=== PATIENT | female | born 1995 | race African-American/Black ===

== ENCOUNTER 2023-12-10 18:55 | Emergency (ER) | payer MEDICAID ==
[2023-12-10 19:04] VITALS: PULSE 68; RESP 14
== END 2023-12-10 20:00 | disposition left against medical advice (07) ==
LOC: ER 18:55
DX: R06.02 Shortness of breath (principal); Z53.21 Procedure and treatment not carried out due to patient leaving prior to being seen by health care provider

== ENCOUNTER 2024-12-25 03:58 | Emergency (ER) | payer MEDICAID ==
[~2024-12-25] VITALS: Ht 170.2 cm; Wt 76.0 kg
[2024-12-25 04:02] VITALS: TEMP 36.6; O2SAT 100
[2024-12-25 05:41] LABS: CLARITY URINE CLEAR (CLEAR); COLOR URINE YELLOW (YELLOW); GLUCOSE URINE NEGATIVE (NEGATIVE); KETONES URINE TRACE (NEGATIVE); LEUKOCYTE ESTERASE URINE NEGATIVE (NEGATIVE); NITRITE URINE NEGATIVE (NEGATIVE); OCCULT BLOOD URINE NEGATIVE (NEGATIVE); PH URINE 6.5 (4.5-8.0); PROTEIN URINE NEGATIVE (NEGATIVE); SPECIFIC GRAVITY URINE 1.003 (1.005-1.030); UROBILINOGEN URINE 0.2 E.U./dL (0.2-1.0)
[2024-12-25 06:45] VITALS: BP 129/86; PULSE 78; RESP 16; O2SAT 78
== END 2024-12-25 08:00 | disposition left against medical advice (07) ==
LOC: ER 03:58
DX: N89.8 Other specified noninflammatory disorders of vagina (principal); Z53.21 Procedure and treatment not carried out due to patient leaving prior to being seen by health care provider
CPT/HCPCS: 81003; 81025